=== PATIENT | male | born 1995 | race Asian ===

== ENCOUNTER 2016-11-11 03:27 | Emergency (ER) | payer MEDICAID ==
--- NOTE | 2016-11-11 04:12 | ED Physician Chart ---
Chief Complaint/HPI - Patient Information Date Seen:: 11/11/16 Time Seen:: 04:07 Chief Complaint:: rt shldr dislocation History of Present Illness:: pt says he was in bed and rolled over and hurt his rt shldr. it has dislocated 13x before. 1 hr before ed. last dislocation was 1ma at [facility] and before that 2-3 weeks before at [facility] also for same. it falls outeasily now but his brother was able to put it backin. his sister drove him to ed and will be back to take hime home. (staff witnessed this) pt has ms allergy (rash) but has had dilaudid in past wo trouble. Allergies:: Allergies Allergy/AdvReac Type Severity Reaction Status Date / Time iodine Allergy Verified 03/11/16 04:17 ketorolac [From Toradol] Allergy Verified 03/11/16 04:17 lorazepam [From Ativan] Allergy Verified 03/11/16 04:17 morphine Allergy Verified 11/11/16 03:43 Vitals:: Vital Signs - 8 hr 11/11/16 03:35 Temp 98.5 F HR 87 RR 20 BP 147/82 O2 Sat % 99 Historian:: Patient Review of Systems - Review of Systems General/Constitutional: No fever, No chills, No weight loss, No weakness, No diaphoresis, No edema, No loss of appetite Skin: No skin lesions, No rash, No bruising Head: No headache, No light-headedness Eyes: No loss of vision, No pain, No diplopia ENT: No earache, No nasal drainage, No sore throat, No tinnitus Neck: No neck pain, No swelling, No thyromegaly, No stiffness, No mass noted Cardio Vascular: No chest pain, No palpitations, No PND, No orthopnea, No edema Pulmonary: No SOB, No cough, No sputum, No wheezing GI: No nausea, No vomiting, No diarrhea, No pain, No melena, No hematochezia, No constipation, No hematemesis G/U: No dysuria, No frequency, No hematuria Musculoskeletal: Bone or joint pain, No back pain, No muscle pain Endocrine: No polyuria, No polydipsia Psychiatric: No prior psych history, No depression, No anxiety, No suicidal ideation Hematopoietic: No bruising, No lymphadenopathy Allergic/Immuno: No urticaria, No angioedema Neurological: No syncope, No focal symptoms, No weakness, No paresthesia, No headache, No seizure, No dizziness, No confusion, No vertigo Past Medical History - Past Medical History Past Medical History: No significant medical hx, Other (shldr disolcation 13 x on rt) Social History: Smoker Medication: Reviewed Family Medical History - Family Member Mother History Unknown: Yes Father History Unknown: Yes Ethnicity: Non- Living Status: Still Living Hx Family Hypertension: Yes Physical Exam - Physical Examination General/Constitutional: Awake, Well-developed, well-nourished, Alert, No distress, GCS 15, Non-toxic appearing, Ambulatory Head: Atraumatic Eyes: Lids, conjuctiva normal, PERRL, EOMI Skin: Nl inspection, No rash, No skin lesions, No ecchymosis, Well hydrated, No lymphadenopathy ENMT: External ears, nose nl, Nasal exam nl, Lips, teeth, gums nl Neck: Nontender, Full ROM w/o pain, No JVD, No nuchal rigidity, No bruit, No mass, No stridor Respiratory: Nl effort/Exclusion, Clear to Auscultation, No Wheeze/Rhonchi/Rales Cardio Vascular: RRR, No murmur, gallop, rubs, NL S1 S2 GI: No tenderness/rebounding/guarding, No organomegaly, No hernia, Normal BS's, Nondistended, No mass/bruits, No McBurney tenderness : No CVA tenderness Extremities: No tenderness or effusion, Full ROM, normal strength in all extremities, No edema, Normal digits & nails Other Extremities comments:: rt shldr has anterior dislocation . humeral head palpable in subclavicular anterior fossa. nv ok. Neuro/Psych: Alert/oriented, DTR's symmetric, Normal sensory exam, Normal motor strength, Judgement/insight normal, Mood normal, Normal gait, No focal deficits Misc: normal gait, Normal back, No paraspinal tenderness Assessment - Procedures Procedures:: rt shldr is obviously dislocated in to anterior fossa. iv established..dilaudid 1mg iv +benadryl 25 mg. traction -countertraction w sheets / no discreet relocation bump felt but humeral head now feels in line w shldr- glenoid space and no more mass in anterior fossa. 5 min later he says it is out again and it is again in humeral fossa...once again relatively easy pressure re-establishes it into glenoid space and shldr imobilized applied immediately. (strong suspicion of trick shldr) pt says he was referred to a ortho dr but they didnt take his medical. he hasnt been to [facility]. no numbness/weakness of hand/forearm xray shows rt shldr humeral head is inferior to glenoid fossa. no fx pt given 1mg dilaudid again and traction-countertraction applied. stopped when pt says he thinks its in afte r 1-2 min although I felt no discreet pop sensation. xray shldr shows reduced//no fx Informed Consent: Procedure/risk/benefits explained by MD: Yes ED Septic Shock - . Is Septic Shock (SBP<90, OR Lactate>4 mmol\L) present?: No - <6hrs of presentation: Vital Signs: Vital Signs - 8 hr 11/11/16 03:35 Temp 98.5 F HR 87 RR 20 BP 147/82 O2 Sat % 99 Reassessment (Disposition) - Reassessment Reassessment:: pt feels itchy but has no rash. no sob. no oral edema. there is slt redness at l forearm near iv site. dw pt. giving benadyl. advise pt know he may be allergic to dilaudid. benadryl and solumedrol ordered iv. pt refused to allow rn to give the solumedrol. 5;40 pts cousin arrives at ed to drive him home. interestingly cousin also is also wearing shldr immobilizer. Reassessment Condition:: Improved - Diagnosis Diagnosis:: dislocation rt shldr s/p reduction in ED - Aftercare/Follow up Instructions Aftercare/Follow-Up Instructions:: Counseled pt regarding lab results/diagnosis & need follow up Medication Prescribed:: rx norco 5s no 15. advise pt see [facility] ortho in next week. no heavy work w rt arm. - Patient Disposition Discharge/Transfer:: Home Condition at Disposition:: Improved ED Discharge Plan - Patient Disposition Instructions: Shoulder Instability, Anterior, Surgery for, with Phase II Rehab- SportsMed, Dislocation or Subluxation-SportsMed
[2016-11-11] MEDS ORDERED: HYDROmorphone 1 mg/mL 1mL Syr IVP STA ×2 (04:14→05:11)
[2016-11-11] MEDS ORDERED: HYDROmorphone 1 mg/mL 1mL Syr ONE ×2 (04:31→05:11)
--- NOTE | 2016-11-11 08:02 | Diagnostic Imaging Report ---
Right shoulder (single view) HISTORY: Dislocation Suboptimal delineation of the glenohumeral joint space due to positioning. No definite dislocation. No fractures. IMPRESSION: 1. Limited exam associated with a single view. 2. No definite acute abnormalities
== END 2016-11-11 05:50 | disposition home or self-care (01) ==
LOC: ER 03:27
DX: S43.004A Unspecified dislocation of right shoulder joint, initial encounter (principal); F17.200 Nicotine dependence, unspecified, uncomplicated; Z88.6 Allergy status to analgesic agent; Z88.8 Allergy status to other drugs, medicaments and biological substances; X58.XXXA Exposure to other specified factors, initial encounter; Y93.89 Activity, other specified; Y92.89 Other specified places as the place of occurrence of the external cause; Y99.8 Other external cause status
CPT/HCPCS: 99284; 23650; 73030; 96374; 96375; 96376; J2930; J1170; J1200; Z7502

== ENCOUNTER 2016-11-12 13:26 | Emergency (ER) | payer MEDICAID ==
[2016-11-12] MEDS ORDERED: HYDROmorphone 1 mg/mL 1mL Syr IVP STA ×3 (13:55→15:11)
--- NOTE | 2016-11-12 14:02 | ED Physician Chart ---
Chief Complaint/HPI - Patient Information Date Seen:: 11/12/16 Time Seen:: 13:50 Chief Complaint:: right shoulder pain History of Present Illness:: Patient awoke this morning with right shoulder pain. He had a dislocation of his right shoulder reduced in this emergency department this morning at 0200. Patient's had about 14 prior right shoulder dislocations. Allergies:: Allergies Allergy/AdvReac Type Severity Reaction Status Date / Time iodine Allergy Verified 11/12/16 13:52 ketorolac [From Toradol] Allergy Verified 11/12/16 13:52 lorazepam [From Ativan] Allergy Verified 11/12/16 13:52 morphine Allergy Verified 11/12/16 13:52 Vitals:: Vital Signs - 8 hr 11/12/16 13:48 Temp 97.8 F HR 82 RR 16 BP 136/72 O2 Sat % 99 Historian:: Patient Review:: Nurse's Note Reviewed Review of Systems - Review of Systems General/Constitutional: No fever, No chills Skin: No skin lesions Head: No headache Eyes: No loss of vision ENT: No earache Neck: No neck pain Cardio Vascular: No chest pain, No palpitations Pulmonary: No SOB GI: No nausea, No vomiting G/U: No dysuria Musculoskeletal: Bone or joint pain Psychiatric: No prior psych history Hematopoietic: No bruising Allergic/Immuno: No urticaria Neurological: No syncope Past Medical History - Past Medical History Past Medical History: Asthma/COPD Family History: HTN Social History: Smoker, No Alcohol Surgical History: None Medication: Reviewed Family Medical History - Family Member Mother History Unknown: Yes Father History Unknown: Yes Ethnicity: Non- Living Status: Still Living Hx Family Hypertension: Yes Physical Exam - Physical Examination General/Constitutional: Well-developed, well-nourished, Alert, No distress Head: Atraumatic Eyes: Lids, conjuctiva normal Skin: Nl inspection, No rash ENMT: External ears, nose nl, TM canals nl Neck: No stridor Respiratory: Nl effort/Exclusion, Clear to Auscultation Cardio Vascular: RRR GI: No tenderness/rebounding/guarding : No CVA tenderness Other Extremities comments:: Right shoulder: Deformity compatible with anterior dislocation Assessment - Assessment General Assessment: Initial attempt to reduce the right shoulder dislocation was made with the patient supine with about 45 head elevation. The flexed right elbow was elevated and externally rotated. Reduction was not successful. Patient was placed in the prone position with the right arm dangling. Internal and external rotation was then performed and again reduction was not accomplished. Four 1 L IV bags of normal saline were then taped to the patient's right forearm with the right arm dangling for about 1 hour. Again reduction was not accomplished. The four IV bags were then replaced with a sandbag. Scapular manipulation technique for reducing the right shoulder dislocation was then attempted. Tonya BETTS pushed the tip of the scapula medially while I stabilized the superior portion of the scapula. Patient experienced immediate relief of pain and post reduction x-ray showed the right shoulder dislocation to be reduced. Right before the successful reduction patient developed itching and erythema of his skin and was given Benadryl 50 mg intravenous. Patient had been given 3 1 mg doses of Dilaudid intravenously. At 1635 patient vomited and will be given Zofran 4 mg intravenously ED Septic Shock - . Is Septic Shock (SBP<90, OR Lactate>4 mmol\L) present?: No - <6hrs of presentation: Vital Signs: Vital Signs - 8 hr 11/12/16 13:48 Temp 97.8 F HR 82 RR 16 BP 136/72 O2 Sat % 99 Reassessment (Disposition) - Reassessment Reassessment:: Patient applied his own right shoulder immobilizer Reassessment Condition:: Improved - Diagnosis Diagnosis:: Anterior dislocation right shoulder - Aftercare/Follow up Instructions Aftercare/Follow-Up Instructions:: Refer to Discharge Instructions - Patient Disposition Discharge/Transfer:: Home Condition at Disposition:: Stable, Improved
[2016-11-12] MEDS ORDERED: HYDROmorphone 1 mg/mL 1mL Syr ONE ×3 (14:13→15:16)
[2016-11-12] MEDS ORDERED: Midazolam 1mg/ml 2 ml vial IV ONE (14:24)
--- NOTE | 2016-11-12 15:18 | Diagnostic Imaging Report ---
Right shoulder (single view) HISTORY: Pain The exam demonstrates anterior dislocation of the right humeral head. No associated fractures are seen. IMPRESSION: 1. Dislocation right humeral head
--- NOTE | 2016-11-13 09:29 | Diagnostic Imaging Report ---
Exam: Right shoulder joint postreduction views HISTORY: Postreduction Findings: Portable examination right shoulder joint at the 1650 was reviewed the the post reduction study demonstrates satisfactory positioning of the head of right humerus within the glenoid fossa. There is no evidence of fracture dislocation subluxation. The right acromioclavicular joint is intact. IMPRESSION: Satisfactory reduction of the right shoulder joint.
== END 2016-11-12 17:29 | disposition home or self-care (01) ==
LOC: ER 13:26
DX: S43.004A Unspecified dislocation of right shoulder joint, initial encounter (principal); J44.9 Chronic obstructive pulmonary disease, unspecified; F17.200 Nicotine dependence, unspecified, uncomplicated; X58.XXXA Exposure to other specified factors, initial encounter; Y93.89 Activity, other specified; Y92.89 Other specified places as the place of occurrence of the external cause; Y99.8 Other external cause status; J45.909 Unspecified asthma, uncomplicated
CPT/HCPCS: 99284; 96374; 96375; 96376; 23650; 73030 ×2; J2405; J1170; J1200; J2250; J7030; Z7502

== ENCOUNTER 2016-11-17 23:43 | Emergency (ER) | payer MEDICAID ==
--- NOTE | 2016-11-18 00:12 | ED Physician Chart ---
Chief Complaint/HPI - Patient Information Date Seen:: 11/18/16 Time Seen:: 00:03 Chief Complaint:: rt shldr pain History of Present Illness:: pt says his rt shoulder is dislocated again for the 3rd time this week. he says he was wearing his shldr imobilizer and laying in bed and somehow it came out again w no provocation. in past it was easy for his brother to put it back in but now lately it isnt and he has to go to ED. he says he still has the norco I gave him last week and has only taken 2 pills * (he neglects to mention 60 tabs rxd on 10/30/16 again) mod pain. no fever/no illlnes Allergies:: Allergies Allergy/AdvReac Type Severity Reaction Status Date / Time iodine Allergy Verified 11/12/16 13:52 ketorolac [From Toradol] Allergy Verified 11/12/16 13:52 lorazepam [From Ativan] Allergy Verified 11/12/16 13:52 midazolam [From Versed] Allergy Verified 11/12/16 14:45 morphine Allergy Verified 11/12/16 13:52 Vitals:: Vital Signs - 8 hr 11/17/16 23:45 Temp 98.1 F HR 80 RR 18 BP 145/98 O2 Sat % 97 Historian:: Patient Review of Systems - Review of Systems General/Constitutional: No fever, No chills, No weight loss, No weakness, No diaphoresis, No edema, No loss of appetite Skin: No skin lesions, No rash, No bruising Head: No headache, No light-headedness Eyes: No loss of vision, No pain, No diplopia ENT: No earache, No nasal drainage, No sore throat, No tinnitus Neck: No neck pain, No swelling, No thyromegaly, No stiffness, No mass noted Cardio Vascular: No chest pain, No palpitations, No PND, No orthopnea, No edema Pulmonary: No SOB, No cough, No sputum, No wheezing GI: No nausea, No vomiting, No diarrhea, No pain, No melena, No hematochezia, No constipation, No hematemesis G/U: No dysuria, No frequency, No hematuria Musculoskeletal: Bone or joint pain, No back pain, No muscle pain Endocrine: No polyuria, No polydipsia Psychiatric: No prior psych history, No depression, No anxiety, No suicidal ideation Hematopoietic: No bruising, No lymphadenopathy Allergic/Immuno: No urticaria, No angioedema Neurological: No syncope, No focal symptoms, No weakness, No paresthesia, No headache, No seizure, No dizziness, No confusion, No vertigo Past Medical History - Past Medical History Past Medical History: Other (rt shldr dislocation 18x) Social History: Smoker Medication: Reviewed Family Medical History - Family Member Mother History Unknown: Yes Father History Unknown: Yes Ethnicity: Non- Living Status: Still Living Hx Family Hypertension: Yes Physical Exam - Physical Examination General/Constitutional: Awake, Well-developed, well-nourished, Alert, No distress, GCS 15, Non-toxic appearing, Ambulatory Head: Atraumatic Eyes: Lids, conjuctiva normal, PERRL, EOMI Skin: Nl inspection, No rash, No skin lesions, No ecchymosis, Well hydrated, No lymphadenopathy ENMT: External ears, nose nl, Nasal exam nl, Lips, teeth, gums nl Neck: Nontender, Full ROM w/o pain, No JVD, No nuchal rigidity, No bruit, No mass, No stridor Respiratory: Nl effort/Exclusion, Clear to Auscultation, No Wheeze/Rhonchi/Rales Cardio Vascular: RRR, No murmur, gallop, rubs, NL S1 S2 GI: No tenderness/rebounding/guarding, No organomegaly, No hernia, Normal BS's, Nondistended, No mass/bruits, No McBurney tenderness : No CVA tenderness Extremities: No tenderness or effusion, Full ROM, normal strength in all extremities, No edema, Normal digits & nails Other Extremities comments:: rt shldr appears in anterior dislocation once again Neuro/Psych: Alert/oriented, DTR's symmetric, Normal sensory exam, Normal motor strength, Judgement/insight normal, Mood normal, Normal gait, No focal deficits Misc: normal gait, Normal back, No paraspinal tenderness ED Septic Shock - . Is Septic Shock (SBP<90, OR Lactate>4 mmol\L) present?: No - <6hrs of presentation: Vital Signs: Vital Signs - 8 hr 11/17/ 23:45 Temp 98.1 F HR 80 RR 18 BP 145/98 O2 Sat % 97 Reassessment (Disposition) - Reassessment Reassessment Condition:: Unchanged - Diagnosis Diagnosis:: rt shoulder chronic dislocation - Aftercare/Follow up Instructions Notes:: advise pt go to [facility] for more definitive ortho treatment. - Patient Disposition Discharge/Transfer:: Acute Care (other hosp) (advised he go to [facility] ED now and see Ortho) Condition at Disposition:: Unchanged
== END 2016-11-18 00:10 | disposition home or self-care (01) ==
LOC: ER 23:43
DX: M24.411 Recurrent dislocation, right shoulder (principal); F17.200 Nicotine dependence, unspecified, uncomplicated; Z88.6 Allergy status to analgesic agent; Z91.041 Radiographic dye allergy status; Z88.8 Allergy status to other drugs, medicaments and biological substances

== ENCOUNTER 2017-04-12 17:33 | Emergency (ER) | payer MEDICAID ==
--- NOTE | 2017-04-12 20:22 | ED Physician Chart ---
ED Chief Complaint/HPI - Patient Information Date Seen:: 04/12/17 Time Seen:: 20:20 Chief Complaint:: fever, URI, abdominal pain History of Present Illness:: location: general quality: fever, URI, ab pain severity: mild, mod duration: 2 days context: pt reports onset of fever, URI congestion, cough. also reports RLQ abdominal pain. says cough is dry and also has had some wheezing. has felt a little sick to the stomach so has not been eating all day today. clarifies that symptoms started at 0300 04/11/17. duration is almost 48 hours. no vomiting, some nausea. says he also hasnt had anything to drink all day. has a general feeling of malaise. recalls no exposures. mod factors: none assoc s/s; none PSH: none hx from pt. Allergies:: Allergies Allergy/AdvReac Type Severity Reaction Status Date / Time iodine Allergy Verified 04/12/17 18:02 ketorolac [From Toradol] Allergy Verified 04/12/17 18:02 lorazepam [From Ativan] Allergy Verified 04/12/17 18:02 midazolam [From Versed] Allergy Verified 04/12/17 18:02 morphine Allergy Verified 11/12/16 13:52 Vitals:: Vital Signs - 8 hr 04/12/17 17:44 Temp 98.1 F HR 82 RR 18 BP 144/86 O2 Sat % 100 Historian:: Patient Review:: Nurse's Note Reviewed ED Review of Systems - Review of Systems General/Constitutional: Fever, No chills, No weight loss, No weakness, No diaphoresis, No edema, Loss of appetite Skin: No skin lesions, No rash, No bruising Head: No headache, No light-headedness Eyes: No loss of vision, No pain, No diplopia ENT: No earache, No nasal drainage, No sore throat, No tinnitus Neck: No neck pain, No swelling, No thyromegaly, No stiffness, No mass noted Cardio Vascular: No chest pain, No palpitations, No PND, No orthopnea, No edema Pulmonary: No SOB, Cough, No sputum, Wheezing GI: Nausea, No vomiting, No diarrhea, Pain, No melena, No hematochezia, No constipation, No hematemesis G/U: No dysuria, No frequency, No hematuria Musculoskeletal: No bone or joint pain, No back pain, No muscle pain ( generalized achiness) Endocrine: No polyuria, No polydipsia Psychiatric: No prior psych history, No depression, No anxiety, No suicidal ideation Hematopoietic: No bruising, No lymphadenopathy Allergic/Immuno: No urticaria, No angioedema Neurological: No syncope, No focal symptoms, No weakness, No paresthesia, No headache, No seizure, No dizziness, No confusion, No vertigo ED Past Medical History - Past Medical History Past Medical History: Asthma/COPD Family History: None Social History: Non Smoker, No Alcohol, No Drug Use, Single, Lives With Parents Surgical History: None Psychiatricy History: None Medication: Reviewed Family Medical History - Family Member Mother History Unknown: Yes Father History Unknown: Yes Ethnicity: Non- Living Status: Still Living Hx Family Hypertension: Yes ED Physical Exam - Physical Examination General/Constitutional: Awake, Well-developed, well-nourished, Alert, No distress, GCS 15, Non-toxic appearing, Ambulatory Head: Atraumatic Eyes: Lids, conjuctiva normal, PERRL, EOMI Skin: Nl inspection, No rash, No skin lesions, No ecchymosis, Well hydrated, No lymphadenopathy ENMT: External ears, nose nl, Nasal exam nl, Lips, teeth, gums nl Neck: Nontender, Full ROM w/o pain, No JVD, No nuchal rigidity, No bruit, No mass, No stridor Respiratory: Nl effort/Exclusion, Clear to Auscultation, No Wheeze/Rhonchi/ Rales (some scant wheezes bilateral lower lobes with coarse breath sounds. ) Cardio Vascular: RRR, No murmur, gallop, rubs, NL S1 S2 GI: Normal BS's, Nondistended (positive McBurney tenderness, hypoactive bowel sounds, no guarding. ) : No CVA tenderness Extremities: No tenderness or effusion, Full ROM, normal strength in all extremities, No edema, Normal digits & nails Neuro/Psych: Alert/oriented, DTR's symmetric, Normal sensory exam, Normal motor strength, Judgement/insight normal, Mood normal, Normal gait, No focal deficits Misc: Normal back, No paraspinal tenderness ED Labs/Radiology/EKG Results - Radiology Results Results: CT abdomen and pelvis no acute findings RAD READ CXR ED Assessment - Assessment General Assessment: pt intially with scant wheezes lower lobes, no crackles. good thoracic expansion. improved after meds. ED Septic Shock - . Is Septic Shock (SBP<90, OR Lactate>4 mmol\L) present?: No - <6hrs of presentation: Vital Signs: Vital Signs - 8 hr 04/12/17 17:44 Temp 98.1 F HR 82 RR 18 BP 144/86 O2 Sat % 100 ED Reassessment (Disposition) - Reassessment Reassessment:: pt improved after meds and IV fluids Reassessment Condition:: Improved - Diagnosis Diagnosis:: respiratory infection, viral influenza screen negative - Aftercare/Follow up Instructions Aftercare/Follow-Up Instructions:: Refer to Discharge Instructions Notes:: go to clinic for recheck tomorrow - Patient Disposition Discharge/Transfer:: Home Time:: 22:45 Condition at Disposition:: Stable, Improved
[2017-04-12] MEDS: Sodium Chloride 0.9% 1,000 ML IV SCH ×2 (20:30→21:45)
[2017-04-12] MEDS ORDERED: Albuterol/Ipratropium Neb 3 ML AERS HHN ONE (20:35)
[2017-04-12 20:37] LABS: EOSINOPHILE ABSOLUTE 0.5 Th/cmm (0.1-0.4); HEMOGLOBIN 14.3 gm/dL (12-16); LYMPHOCYTE ABSOLUTE 0.2 Th/cmm (1.5-3.0); MANUAL DIFF REQUIRED? YES; MEAN CELL VOLUME 87.9 fl (80-99); MEAN CORPUSCULAR HEMOGLOBIN 29.2 pg (26.0-30.0); MEAN CORPUSCULAR HGB CONC 33.2 pg (28.0-36.0); MEAN PLATELET VOLUME 8.6 fl; NEUTROPHILE ABSOLUTE 3.7 Th/cmm (1.8-8.0); RED BLOOD COUNT 4.89 Mil/cmm (4.30-5.70); RED CELL DISTRIBUTION WIDTH 12.9 % (11.5-20.0); WHITE BLOOD COUNT 6.4 Th/cmm (4.8-10.8)
[2017-04-12] MEDS: Albuterol/Ipratropium Neb 3 ML AERS HHN ONE (20:49)
[2017-04-12 20:50] LABS: PLATELET COUNT 194 Th/cmm (150-400)
[2017-04-12 20:52] LABS: ALBUMIN 4.7 gm/dL (4.2-5.5); ALKALINE PHOSPHATASE 60 U/L (34-104); AMYLASE SERUM 59 U/L (29-103); ANION GAP 9.1 (7.0-16.0); BILIRUBIN,TOTAL 0.7 mg/dL (0.3-1.0); BUN - UREA NITROGEN 13 mg/dL (7-25); CALCIUM SERUM 9.5 mg/dL (8.6-10.3); CARBON DIOXIDE 31.4 mEq/L (21.0-31.0); CHLORIDE 102 mEq/L (98-107); CREATININE - SERUM 0.8 mg/dL (0.7-1.3); GFR AFRICAN-AMERICAN > 60.0 ml/min (>90); GFR NON AFRICAN-AMERICAN > 60.0 ml/min; GLUCOSE 95 mg/dL (70-105); LIPASE 17 U/L (11-82); POTASSIUM SERUM 3.5 mEq/L (3.5-5.1); SGOT 14 U/L (13-39); SGPT/ALT 13 U/L (7-52); SODIUM SERUM 139 mEq/L (136-145); TOTAL PROTEIN,SERUM 7.1 gm/dL (6.0-8.3)
[2017-04-12] MEDS: Budesonide 0.5 Mg/2 mL Ud HHN ONE (20:56)
[2017-04-12 21:40] LABS: INF A SCREEN NEG FOR INF A; INF B SCREEN NEG FOR INF B
[2017-04-12 21:53] LABS: BAND NEUTROPHILE 0 % (0-10); BASOPHIL 0 % (0-3); EOSINOPHIL 1 % (0-5); LYMPHOCYTE 25 % (20-50); MONOCYTE 8 % (2-10); NEUTROPHILS 66 % (40-80); PLATELET ESTIMATE ADEQUATE (NORMAL); PLATELET MORPHOLOGY NORMAL (NORMAL); TOTAL CELLS COUNTED 100
[2017-04-12] MEDS ORDERED: methylPREDNISolone SS 40 mg Vial ONE (22:34)
[2017-04-12] MEDS: methylPREDNISolone SS 40 mg Vial IM SCH (22:45)
--- NOTE | 2017-04-13 08:00 | Diagnostic Imaging Report ---
Portable chest x-ray Time: 2054 History: : Wheezing Allowing for portable technique the heart size is normal. No focal pulmonary parenchymal processes. No hilar or mediastinal abnormalities. Impression: No acute abnormalities.
--- NOTE | 2017-04-13 08:14 | Diagnostic Imaging Report ---
Exam: CT examination abdomen pelvis. HISTORY: Acute abdominal pain right lower quadrant Total DLP equals 474 CTDI equals 9.7 Findings: Multiple contiguous thin section of the abdomen pelvis obtained from lower thorax to the pubic symphysis without the administration intravenous or oral contrast material. No prior studies available for comparison. The study demonstrates normal aeration of lung parenchyma the bases. The liver is intact. The spleen is enlarged. The gallbladder is normal. The adrenal glands intact. The kidneys demonstrate no evidence of obstructive uropathy or nephrolithiasis. No free fluid is noted in the abdomen pelvis. There is no evidence of diverticulitis. The appendix is visualized. There is no inflammatory changes in the right lower quadrant. The urinary bladder is contracted. Bony structures demonstrate no evidence for lytic or blastic changes. IMPRESSION: Essentially unremarkable examination of the abdomen pelvis
== END 2017-04-12 23:05 | disposition home or self-care (01) ==
LOC: ER 17:33
DX: J06.9 Acute upper respiratory infection, unspecified (principal); J45.909 Unspecified asthma, uncomplicated; J44.9 Chronic obstructive pulmonary disease, unspecified
CPT/HCPCS: 99285; 96372; 94640 ×2; 71045; 74176; 36415; 83605; 87804 ×2; 85007; 85027; 82150; 83690; 80053; J2930; J1200; J2920; J7030

== ENCOUNTER 2018-11-01 00:46 | Emergency (ER) | payer MEDICAID ==
--- NOTE | 2018-11-01 01:06 | ED Physician Chart ---
ED Chief Complaint/HPI - Patient Information Date Seen:: 11/01/18 Time Seen:: 01:01 Chief Complaint:: right shoulder dislocation History of Present Illness:: this is a 23 yo male who states that his shoulder was dislocated tonight. he states that it has been dislocated in the past, however he states that he has drug reactions to morphine, benzodiapams, benadryl, atomadate and toradol. Allergies:: Allergies Allergy/AdvReac Type Severity Reaction Status Date / Time iodine Allergy Verified 04/12/17 18:02 ketorolac [From Toradol] Allergy Verified 04/12/17 18:02 lorazepam [From Ativan] Allergy Verified 04/12/17 18:02 midazolam [From Versed] Allergy Verified 04/12/17 18:02 morphine Allergy Verified 11/12/16 13:52 Historian:: Patient Review:: Nurse's Note Reviewed ED Review of Systems - Review of Systems General/Constitutional: No fever, No chills, No weight loss, No weakness, No diaphoresis, No edema, No loss of appetite Skin: No skin lesions, No rash, No bruising Head: No headache, No light-headedness Eyes: No loss of vision, No pain, No diplopia ENT: No earache, No nasal drainage, No sore throat, No tinnitus Neck: No neck pain, No swelling, No thyromegaly, No stiffness, No mass noted Cardio Vascular: No chest pain, No palpitations, No PND, No orthopnea, No edema Pulmonary: No SOB, No cough, No sputum, No wheezing GI: No nausea, No vomiting, No diarrhea, No pain, No melena, No hematochezia, No constipation, No hematemesis G/U: No dysuria, No frequency, No hematuria Musculoskeletal: Bone or joint pain (right shoulder dislocation), No back pain, No muscle pain Endocrine: No polyuria, No polydipsia Psychiatric: No prior psych history, No depression, No anxiety, No suicidal ideation Hematopoietic: No bruising, No lymphadenopathy Allergic/Immuno: No urticaria, No angioedema Neurological: No syncope, No focal symptoms, No weakness, No paresthesia, No headache, No seizure, No dizziness, No confusion, No vertigo ED Past Medical History - Past Medical History Obtainable: Yes Past Medical History: No significant medical hx Family History: None Social History: Non Smoker, No Alcohol, No Drug Use Family Medical History - Family Member Mother History Unknown: Yes Father History Unknown: Yes Ethnicity: Non- Living Status: Still Living Hx Family Hypertension: Yes ED Physical Exam - Physical Examination General/Constitutional: Awake, Well-developed, well-nourished, Alert, No distress, GCS 15, Non-toxic appearing, Ambulatory Head: Atraumatic Eyes: Lids, conjuctiva normal, PERRL, EOMI Skin: Nl inspection, No rash, No skin lesions, No ecchymosis, Well hydrated, No lymphadenopathy ENMT: External ears, nose nl, Nasal exam nl, Lips, teeth, gums nl Neck: Nontender, Full ROM w/o pain, No JVD, No nuchal rigidity, No bruit, No mass, No stridor Respiratory: Nl effort/Exclusion, Clear to Auscultation, No Wheeze/Rhonchi/Rales Cardio Vascular: RRR, No murmur, gallop, rubs, NL S1 S2 GI: No tenderness/rebounding/guarding, No organomegaly, No hernia, Normal BS's, Nondistended, No mass/bruits, No McBurney tenderness : No CVA tenderness Extremities: No tenderness or effusion, Full ROM, normal strength in all extremities, No edema, Normal digits & nails Other Extremities comments:: right shoulder dislocation with minimal pain on rotation Neuro/Psych: Alert/oriented, DTR's symmetric, Normal sensory exam, Normal motor strength, Judgement/insight normal, Mood normal, Normal gait, No focal deficits Misc: Normal back, No paraspinal tenderness ED Assessment - Assessment General Assessment: right shoulder dislocation ED Septic Shock - . Is Septic Shock (SBP<90, OR Lactate>4 mmol\L) present?: No ED Reassessment (Disposition) - Reassessment Reassessment Condition:: Unchanged - Diagnosis Diagnosis:: right shoulder dislocation - Aftercare/Follow up Instructions Aftercare/Follow-Up Instructions:: Counseled pt regarding lab results/diagnosis & need follow up, Refer to Discharge Instructions Notes:: the patient was told we would have to use sedation for his pain but not dilaudid and the patient decided that he would leave ama. we informed him that he could be taken to surgery by an orthorpedic for reduction but currently we have no orthopedic surgeon on staff in this hospital. - Patient Disposition Discharge/Transfer:: Against Medical Advice
== END 2018-11-01 01:15 | disposition left against medical advice (07) ==
LOC: ER 00:46
DX: S43.004A Unspecified dislocation of right shoulder joint, initial encounter (principal); Z88.5 Allergy status to narcotic agent; Z88.6 Allergy status to analgesic agent; Z88.8 Allergy status to other drugs, medicaments and biological substances; Z91.041 Radiographic dye allergy status; X58.XXXA Exposure to other specified factors, initial encounter; Y93.89 Activity, other specified; Y92.89 Other specified places as the place of occurrence of the external cause; Y99.8 Other external cause status
CPT/HCPCS: Z7502